=== PATIENT | male | born 1970 | race Caucasian/White ===

== ENCOUNTER 2016-11-27 13:29 | Emergency (ER) | payer MEDICARE, SELFPAY ==
[2016-11-27 13:43] VITALS: O2SAT 95
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
[2016-11-27] MEDS ORDERED: SILVADENE 50 GM TP ONE ×2 (14:34→14:38)
[2016-11-27 14:55] VITALS: BP 120/72; PULSE 83
== END 2016-11-27 14:55 | disposition home or self-care (01) ==
LOC: ED 13:29
DX: T23.132A Burn of first degree of multiple left fingers (nail), not including thumb, initial encounter (principal); X19.XXXA Contact with other heat and hot substances, initial encounter
CPT/HCPCS: 99283; A9270-GY